=== PATIENT | female | born 1940 | race Caucasian/White ===

== ENCOUNTER 2021-02-04 21:01 | Inpatient (IN) | payer OTHER ==
[~2021-02-04] VITALS: Ht 147.3 cm; Wt 43.6 kg
[2021-02-04 21:09] VITALS: BP 155/64
[2021-02-04 21:50] LABS: URINE BILIRUBIN NEGATIVE (Negative); URINE BLOOD NEGATIVE (Negative); URINE CLARITY CLEAR; URINE COLOR YELLOW; URINE GLUCOSE-RANDOM* NEGATIVE (Negative); URINE KETONES NEGATIVE (Negative); URINE NITRITE-REFLEX NEGATIVE (Negative); URINE PROTEIN (DIPSTICK) NEGATIVE (Negative); URINE SPECIFIC GRAVITY 1.015 (1.005-1.035); URINE UROBILINOGEN 0.2 E.U./dl (0.2-1.0)
[2021-02-04 21:51] LABS: URINE LEUKOCYTES-REFLEX 1+ (Negative)
[2021-02-04 21:53] LABS: ABSOLUTE NEUTROPHILS 4.5 thou/uL (1.4-8.2); EOSINOPHILS 0.6 % (0.0-3.0); HEMOGLOBIN 11.3 gm/dL (12.0-15.0); LYMPHOCYTES 21.1 % (24.0-44.0); MCH 31.3 pg (26.0-34.0); MCHC 34.2 g/dL (28.0-37.0); MCV 91.4 fL (80.0-100.0); MONOCYTES 9.1 % (1.0-8.0); PLATELET COUNT 237 thou/uL (150-400); POLYS 68.2 % (36.0-66.0); RBC 3.61 mil/uL (4.20-5.00); RDW 14.3 % (10.5-14.5); WBC 6.7 thou/uL (4.0-11.0)
[2021-02-04 22:00] LABS: BACTERIA-REFLEX 1-9 Few /HPF (None Seen); CRYSTALS None Seen /LPF (None Seen); HYALINE CASTS 0-3 Few /LPF (None Seen); MUCUS 0-3 Light strn/LPF (None Seen); SQUAMOUS 0-3 Few /LPF (0-3); URINE RBC 0-2 Rare /HPF (0-2); URINE WBC-REFLEX 6-15 Few /HPF (0-5)
[2021-02-04 22:04] LABS: ANION GAP 11 mmol/L (7-16); BUN 12 mg/dL (7-18); CALCIUM 8.6 mg/dL (8.5-10.1); CHLORIDE 94 mmol/L (98-107); CO2 23 mmol/L (21-32); GLUCOSE 95 mg/dL (74-106); POTASSIUM 4.3 mmol/L (3.5-5.1); SODIUM 128 mmol/L (136-145)
[2021-02-04 22:14] LABS: ALBUMIN 3.7 g/dL (3.4-5.0); SGOT 21 U/L (15-37); SGPT 23 U/L (30-65); TOTAL BILIRUBIN 0.4 mg/dL (0.2-1.0); TOTAL PROTEIN 7.1 g/dL (6.4-8.2); TROPONIN-I <0.06 ng/mL (<0.06)
[2021-02-04] MEDS ORDERED: LEVO-T75 MCG PO (23:28)
[2021-02-04 23:41] VITALS: BP 137/65
--- NOTE | 2021-02-05 | NUR ---
assumed care of pt from ed , upon arrival to unit pt alert and oriented x 4 denies nausea at this time. orange juice requested. data base and asssessment completed, no concerns voiced regarding care. but patinet want to talk with social sciences research scientist or registration before signing admission forms. forms left at bedside. pt agreeable with current poc.
[2021-02-05 00:27] VITALS: BP 137/65
[2021-02-05 00:29] VITALS: BP 143/78
[2021-02-05 05:16] LABS: CALCIUM 8.6 mg/dL (8.5-10.1); CREATININE 0.9 mg/dL (0.6-1.0); POTASSIUM 4.3 mmol/L (3.5-5.1)
--- NOTE | 2021-02-05 07:05 | EKG ---
[address] [place] [place] [address] ELECTROCARDIOGRAM REPORT Name: RICHARD KING Room #: 455-P ADM IN M.R.#: [id number] Admission: 02/04/21 Attend Phys: Edita Rodriguez Discharge: Date of : 44 Report #: [id number] [facility] ED Test Date: 2021-02-04 Test Time: 21:18:06 Pat Name: RICHARD KING Department: Room: [facility] Gender: F Market Director: flako : 1940 Requested By: Heriberto Guerra Order Number: [id number] MD: Yonas Pemberton Measurements Intervals [place] Rate: 69 P: 74 [place]: 59 QRS: 42 QRSD: 96 T: 59 QT: 377 QTc: 404 Interpretive Statements Sinus rhythm Short [place] interval Low voltage, extremity leads Baseline wander in lead(s) V1,V2,V6 No previous ECG available for comparison Electronically Signed On 02-05-2021 7:05:16 CDT by Yonas Pemberton [email or web address] <ELECTRONICALLY SIGNED> By: Yonas Pemberton MD, [facility] 02/05/21704 2118 17 Yonas Pemberton MD, FACC /EPI
[2021-02-05 07:43] VITALS: BP 139/75
--- NOTE | 2021-02-05 14:18 | NUR ---
PT ADMITTED RELATED TO WEAKNESS, UTI, HYPONATREMIA, CONSTIPATION. CM REVIEWED CHART AND SPOKE WITH CARE TEAM. CM MET WITH PT AT BEDSIDE THIS DAY. PT APPEARED TO BE A&0 X 3-4. CM ROLE INTRODUCED. PT INDICATED SHE LIVES OVER AT [facility]. SHE RESIDES WITH A NUMBER OF UNRELATED ADULT WOMEN. SHE RESIDES IN A BASEMENT APARTMENT OR THE HOME 1 STEP TO ENTER AND 14 STEPS TO WHERE SHE STAYS. 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 PT HAD BEEN ON SERVICE WITH [facility] AND SHE IS RECEPTIVE TO RESUMING SERVICES WITH THEM UPON DC. CARE TEAM INDICATED SHE MAY BE MEDIALLY STABLE TO DC HOME WITH HH TOMORROW. CM FOLLOWING REGARDING DC PLANNING. SPECIALIZED P: F:
[2021-02-05 18:41] VITALS: BP 141/71
--- NOTE | 2021-02-05 19:40 | NUR ---
ASSUMED CARE OF PATIENT AT SHIFT CHANGE. ASSESSMENT CHARTED. MEDICATIONS ADMINISTERED PER EMAR. VSS. PATIENT IS A&OX4 AND ABLE TO MAKE NEEDS KNOWN. PATIENT IS SBA TO BATHROOM W NO ISSUES/STEADY GAIT. FREQUENT VOIDING STILL BUT NOT OFTEN LAST NIGHT. ABX DID INFUSE W NO ISSUES. BLOOD CULTURES DRAWN THIS DAY BUT NO NEW ABX ORDERED THIS SHIFT. PATIENT VISITED W SPIRITUAL CARE AND STATES FEELING SO MUCH BETTER. PATIENT SHOWERED W SET UP ASSISTANCE THIS DAY W NO ISSUES. NO NEW OR REMARKABLE EVENTS NOTED. ENDORSED TO NOC RN
[2021-02-05 20:09] VITALS: BP 122/55
--- NOTE | 2021-02-06 03:35 | NUR ---
ASSESSMENT COMPLETED. PT ALERT AND ORIENTED, WITH FORGETFULNESS. PT STATES SHE FEELS ALOT BETTER. GETS UP STEADILY TO THE BSC. AFEBRILE. DENIES PAIN.CALLS WITH NEEDS.
[2021-02-06 07:34] VITALS: BP 134/61
--- NOTE | 2021-02-06 11:39 | NUR ---
Assumed pt care at 7am.Pt in bed resting without c/o.Assessment completed.vss. Pt wanted to dc home today and follow with health care instructions in order to stay home and healthy.Dr Wells here,dc order noted.Pt will dc home later today.
[2021-02-06] MEDS ORDERED: MIRALAX17 GM PO (13:25)
[2021-02-06] MEDS ORDERED: CEFUROXIME250 MG PO (13:25)
[2021-02-06] MEDS ORDERED: ACETAMINOPHEN325 M1 PO (13:25)
[2021-02-06 14:24] VITALS: BP 134/61
[2021-02-08 11:51] VITALS: BP 134/61
== END 2021-02-06 15:55 | disposition home health service (06) | DRG 689 ==
LOC: ER 21:01 → 4W 23:25 → EROBS 23:25 → 4W 02-05 00:12
PROVIDERS: Nurse Practitioner; Nurse Practitioner Family; ADMIT Hospitalist; ATTEND Hospitalist
DX: N39.0 Urinary tract infection, site not specified (principal); E43 Unspecified severe protein-calorie malnutrition; E87.1 Hypo-osmolality and hyponatremia; E03.9 Hypothyroidism, unspecified; K59.00 Constipation, unspecified; Z68.20 Body mass index [BMI] 20.0-20.9, adult
CPT/HCPCS: 10040

== ENCOUNTER 2021-02-09 05:25 | Inpatient (IN) | payer OTHER ==
[~2021-02-09] VITALS: Ht 147.3 cm; Wt 43.8 kg
--- NOTE | ~2021-02-09 | EMS ---
[facility] [address] [place] [address] EMS Patient Care Report Name: RICHARD KING Room #: 459-P DIS IN M.R.#: [id number] Admission: 02/09/21 Attend Phys: César Wells MD Discharge: 02/11/21 Date of : 42 Report #: [id number] THIS REPORT FOR: //name// Report Transmitted: 02/13/2021 06:41 EMS Care Summary [place], [place] Incident [id number] @ 02/09/2021 04:55 Incident Location [id number] [place] [address] Patient RICHARD KING Female, 80 Years 1940 Patient Address [address] [place] [address] Patient Allergies No known allergies, Chief Complaint I feel weak and fell Disposition Transported No Lights/Home Dispatch Reason Falls Transported To [facility] Narrative Called for a fall. Upon arrival, pt was lying on the ground found by bystander/friends. It was the reported the pt was out walking around and got weak and fell to the ground. Pt does not appear to be injured and has no complaints. Pt assisted to the EMS cot and loaded into the ambulance w/o incident. Vitals obtained. Pt c/o just feeling a little weak. IV and D-stick obtained. Vitals repeated. En route; no changes. RR to ER. Arrived: pt taken to ER and moved to their bed w/o incident. Pt care & report to ER staff. Initial Vitals [facility] [address] [place] [address] EMS Patient Care Report Name: RICHARD KING Room #: 459-P DIS IN M.R.#: [id number] Admission: 02/09/21 Attend Phys: César Wells MD Discharge: 02/11/21 Date of : 42 Report #: [id number] @05:12P: 74,R: 16,BP: 180/80,Pain: 0/10,GCS: 15,Glucose: 124,CO: 1,SpO2: 100,Revised Trauma: 12, @05:05P: 79,R: 16,BP: 169/84,Pain: 0/10,GCS: 15,SpO2: 100,Revised Trauma: 12, Assessments @05:00MENTAL:Person Oriented,Time Oriented,Event Oriented,Place Oriented,SKIN:HEENT:LUNG SOUNDS:ABDOMEN:PELVIS//GI:No Abnormalities,EXTREMITIES:Left Arm: No Abnormalities,Right Arm: No Abnormalities,Left Leg: No Abnormalities,Right Leg: No Abnormalities,PULSE:Radial: 2+ Normal,NEURO:No Abnormalities, Impression Generalized Weakness Procedures @05:00ALS AssessmentResponse: UnchangedSucceeded@05:09Saline Lock 8cc (18 ga) Site: Forearm-RightResponse: UnchangedSucceeded@05:07Saline Lock cc (18 ga) Site: Antecubital-LeftResponse: UnchangedFailed@05:02StretcherResponse: Unchanged Timeline 04:51,Call Received 04:51,Dispatch Notified 04:55,Dispatched 04:55,En Route 04:59,On Scene 05:00,At Patient 05:00,ALS Assessment,Response: UnchangedSucceeded, 05:02,Stretcher,Response: Unchanged 05:05,BP: 169/84 M,PULSE: 79,RR: 16 R,SPO2: 100 Ox,ETCO2: ,BG: ,PAIN: 0,GCS: 15, 05:07,Saline Lock cc 18 ga Site: Antecubital-Left,Response: UnchangedFailed, 05:09,Saline Lock 8cc 18 ga Site: Forearm-Right,Response: UnchangedSucceeded, 05:11,Depart Scene 05:12,BP: 180/80 M,PULSE: 74,RR: 16 R,SPO2: 100 Ox,ETCO2: ,B,PAIN: 0,GCS: 15, 05:21,At Destination 05:37,Call Closed Disclaimer v1.1 Copyright 2020 [employer] This EMS Care Summary contains data elements from the applicable legal record (which may be displayed differently). It is designed to provide pertinent information for the following purposes: continuity of care, clinical quality, and state data reporting. The complete legal record is available to ED staff and administrators of the receiving hospital in [employer]'s Patient [place] [id number] EMS Patient Care Report Name: RICHARD KING Room #: 459-P DIS IN M.R.#: [id number] Admission: 02/09/21 Attend Phys: César Wells MD Discharge: 02/11/21 Date of : 42 Report #: [id number] is provided "as is."
[~2021-02-09 05:25] MED LIST: ACETAMINOPHEN325 M1 PO; CEFUROXIME250 MG PO; LEVO-T75 MCG PO; MIRALAX17 GM PO
[2021-02-09 05:37] VITALS: BP 159/64
[2021-02-09 05:42] LABS: ABSOLUTE NEUTROPHILS 3.2 thou/uL (1.4-8.2); EOSINOPHILS 0.8 % (0.0-3.0); HEMATOCRIT 30.9 % (37.0-47.0); HEMOGLOBIN 10.6 gm/dL (12.0-15.0); LYMPHOCYTES 19.4 % (24.0-44.0); MCHC 34.5 g/dL (28.0-37.0); MONOCYTES 9.2 % (1.0-8.0); PLATELET COUNT 227 thou/uL (150-400); POLYS 69.6 % (36.0-66.0); RBC 3.43 mil/uL (4.20-5.00); RDW 13.8 % (10.5-14.5); WBC 4.6 thou/uL (4.0-11.0)
--- NOTE | 2021-02-09 05:52 | EKG ---
[address] [address] ELECTROCARDIOGRAM REPORT Name: STARLARICHARD CANADA Room #: [facility]..#: [id number] Admission: Attend Phys: Discharge: Date of : 44 Report #: [id number] [facility] ED Test Date: 2021-02-09 Test Time: 05:44:57 Pat Name: RICHARD KING Department: Room: Gender: F Rn Cardiovascular: flako : 1940 Requested By: Ct Conway Order Number: [id number] MD: Yonas Pemberton Measurements Intervals [place] Rate: 70 P: 73 [place]: 165 QRS: 34 QRSD: 101 T: 53 QT: 430 QTc: 464 Interpretive Statements Sinus rhythm Probable left atrial enlargement Minimal ST elevation, inferior leads Compared to ECG 02/04/2021 21:18:06 ST (T wave) deviation now present Short [place] interval no longer present Electronically Signed On 02-09-2021 5:52:36 CDT by Yonas Pemberton [email or web address] <ELECTRONICALLY SIGNED> By: Yonas Pemberton MD, [facility] 02/09/21 0552 D: 04/543 Yonas Pemberton MD, FACC /EPI
[2021-02-09 05:54] LABS: ANION GAP 9 mmol/L (7-16); BUN 6 mg/dL (7-18); CALCIUM 8.5 mg/dL (8.5-10.1); CHLORIDE 90 mmol/L (98-107); CO2 24 mmol/L (21-32); CREATININE 0.8 mg/dL (0.6-1.0); GLUCOSE 112 mg/dL (74-106); POTASSIUM 3.8 mmol/L (3.5-5.1); SODIUM 123 mmol/L (136-145)
[2021-02-09 06:01] LABS: ALBUMIN 3.6 g/dL (3.4-5.0); SGOT 20 U/L (15-37); SGPT 20 U/L (14-59); TOTAL BILIRUBIN 0.6 mg/dL (0.2-1.0); TROPONIN-I <0.06 ng/mL (<0.06)
[2021-02-09 06:43] LABS: URINE BILIRUBIN NEGATIVE (Negative); URINE BLOOD NEGATIVE (Negative); URINE CLARITY CLEAR; URINE COLOR YELLOW; URINE GLUCOSE-RANDOM* NEGATIVE (Negative); URINE KETONES 1+ (Negative); URINE LEUKOCYTES-REFLEX NEGATIVE (Negative); URINE NITRITE-REFLEX NEGATIVE (Negative); URINE PROTEIN (DIPSTICK) NEGATIVE (Negative); URINE UROBILINOGEN 0.2 E.U./dl (0.2-1.0)
[2021-02-09 08:06] VITALS: BP 141/62
[2021-02-09 08:16] VITALS: BP 141/62
[2021-02-09 08:34] VITALS: BP 136/59
[2021-02-09 15:09] VITALS: BP 108/57
--- NOTE | 2021-02-09 16:09 | NUR ---
PT ADMITTED RELATED TO CONFUSION AND HYPONATREMIA. PT HAD DISCHARGE HOME WITH RESUMPTION OF [facility] HH ON TUESDAY 02/06. CM REVIEWED CHART AND SPOKE WITH CARE TEAM. CM MET WITH PT AT BEDSIDE THIS DAY. PT APPEARED TO BE A&0 X 3-4. CM ROLE INTRODUCED. PT INDICATED SHE LIVES OVER AT [facility]. SHE RESIDES WITH A NUMBER OF UNRELATED ADULT WOMEN. SHE RESIDES IN A BASEMENT APARTMENT OR THE HOME 1 STEP TO ENTER AND 14 STEPS TO WHERE SHE STAYS. 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 [facility]. PT INDICATED THAT WE CAN SPEAK TO HER BROTHER ALMA OR SISTER IN LAW ELI . CM CALLED AND SPOKE WITH ALMA HE INDICATED THAT FAR HE KNOWS HE ISN'T PT DPOA BUT HE WOULD BE RECPTIVE TO BEING DPOA IF PT CAN ELECT. PT INDICATED SHE IS RECEPTIVE TO SKILLED IF NEEDED UPON DC. SHE INDICATED SHE IS FAMILIAR WITH [facility] AND MIGHT BE INTERESTED IN GOING THERE ONCE MEDICALLY STABLE. CM FOLLOWING REGARDING DC PLANNING. CM FOLLOWING REGARDING DC PLANNING. SPECIALIZED P: F:
--- NOTE | 2021-02-09 17:14 | NUR ---
Received the pt from the ED, alert and oriented x 3 to 4, forgetful at times. Stated her point of contact and dpoa is her brother who lives in [place]. Has 2 friends that 1 lives in the same house pt does and one who helps her out. Brother had indicated he is willing and to be the dpoa and stated he may have papers at home but not sure what they are. Friend Annita came to visit, home meds, soiled clothes, pull ups (diapers) and keys were sent home with Annita. Friend is to come back later on in the evening to bring more clothes the pt requested. Here are the numbers of the family members. Rodger Celestin (brother) [phone], Pippa Celestin (sister in law) [phone]
[2021-02-09 20:36] VITALS: BP 121/56
--- NOTE | 2021-02-10 03:47 | NUR ---
PATIENT AOX4 MAKES NEEDS KNOWN. PATIENT ENCOURAGED FLUIDS. PATIENT NEEDS MINIMUM ASSISTANCE WITH ADL, BED MOBILITY, TRANSFER AND TOILETING. FALL PRECAUTION IN PLACE. PATIENT IN BED ASLEEP AT THIS TIME BREATHING REGULAR AND UNLABOURED.
[2021-02-10 05:14] LABS: CALCIUM 8.4 mg/dL (8.5-10.1); CREATININE 1.1 mg/dL (0.6-1.0); MAGNESIUM 2.1 mg/dL (1.8-2.4); POTASSIUM 4.1 mmol/L (3.5-5.1)
[2021-02-10 09:00] VITALS: BP 121/78
--- NOTE | 2021-02-10 09:39 | NUR ---
Pt has very limited oral intake at home, recommend check folate, B12, vitamin D levels and replete if needed
--- NOTE | 2021-02-10 11:38 | NUR ---
BPCI letter provided, patient from home
--- NOTE | 2021-02-10 14:00 | NUR ---
CARE TEAM INDICATING THAT PT NEEDS POST ACUTE CARE STAY. PT IS AGREEABLE. PT IS [facility] PT. CM MET WITH PT AND PROVIDED [facility] SNF LIST FOR REVIEW. PT AGAIN INDICATED SHE WANTED TO GO TO [facility]. CM CHECKED WITH [facility] REPS AND THEY INDICATED THAT PT COULD DC THERE. DAWOOD ASKED PF IF SHE INTENDED TO RETURN HOME ONCE MEDCIALLY STABLE AND RESUME HH SERVICES WITH [facility] OR IF PT WAS INTERESTED IN LTC. SHE INDICATED SHE PLANS TO RETURN HOME ONCE MEDICALLY STABLE. CM FAXED REFERRAL TO [facility] FOR REVIEW FOR POSSIBLE ADMISSION.
--- NOTE | 2021-02-10 19:22 | NUR ---
Assumed pt care this am , vs stable alert and oriented x4. Sodium are with in normal limits, diet and medication are tolerated well. Is continent and uses the bedside commode, spent most of her day on the recliner. POC followed with no signs or verbalziations of distress noted, awaiting authorization for placement to a facility. Endorsed to the night nurse, COVID test done.
[2021-02-10 19:48] VITALS: BP 120/67
--- NOTE | 2021-02-11 05:36 | NUR ---
Assumed pt care at 1900. A/OX4, VSS. Denies pain on assessment. SR on telemetry. Up with SBA to BSC. IVF infusing via RFA w/o any problems. Fall precauitons in place. Resting w/o any distress,will continue to monitor pt.
[2021-02-11 07:27] VITALS: BP 125/50
[2021-02-11 11:06] LABS: HEMATOCRIT 34.6 % (37.0-47.0); HEMOGLOBIN 11.2 gm/dL (12.0-15.0); MCH 30.3 pg (26.0-34.0); MCHC 32.5 g/dL (28.0-37.0); MCV 93.4 fL (80.0-100.0); RBC 3.7 mil/uL (4.20-5.00); RDW 14.6 % (10.5-14.5); WBC 5.3 thou/uL (4.0-11.0)
[2021-02-11 11:11] LABS: CALCIUM 8.9 mg/dL (8.5-10.1); CREATININE 0.8 mg/dL (0.6-1.0)
--- NOTE | 2021-02-11 11:48 | NUR ---
CM SPOKE WITH ADMISSIONS AT [facility] THIS AM. THEY INDICATED THAT THEY ARE ABLE TO ACCEPT PT IF IT IS DETERMINED THAT SHE IS CAPABLE TO MAKE HER OWN MEDICAL DECISIONS. DAWOOD SPOKE WITH PSYC WHO INDICATED SHE IS AND THAT DPOA CAN BE COMPLETED. CM NOTIFIED MIMI TO VISIT WITH PT TO COMPLETE DOCUMENT. CARE TEAM INDICATED PT IS MEDICALLY STABLE TO DC TO [facility] THIS DAY AWAITING ORDERS. CLINICAL UPDATE FAXED.
[2021-02-11 12:00] VITALS: BP 130/62
--- NOTE | 2021-02-11 12:56 | NUR ---
Assumed pt care at 7am.Assessment completed,vss.Assisted to bsc to void. Pt in bed for all meals and good appetite noted.Meds given as ordered and well tolerated.Miralax given with apple juice this am and pt has moderate formed bm two hours later.Dr Gregorio here,dc order noted.Pt will dc to [facility] rehab later today.Pt up chair eating lunch.Fall bundle in place. Pt encouraged to call for assistance as needed.Will continue to monitor.
== END 2021-02-11 16:25 | DRG 640 ==
LOC: ER 05:25 → EROBS 07:42 → 4W 07:42
PROVIDERS: Emergency Medicine; Internal Medicine; ADMIT Internal Medicine; ATTEND Internal Medicine
DX: E87.1 Hypo-osmolality and hyponatremia (principal); G93.41 Metabolic encephalopathy; N39.0 Urinary tract infection, site not specified; Z20.822 Contact with and (suspected) exposure to COVID-19; E03.9 Hypothyroidism, unspecified; R53.81 Other malaise; K59.00 Constipation, unspecified; Z79.899 Other long term (current) drug therapy
CPT/HCPCS: 10045

== ENCOUNTER 2021-10-21 15:41 | Inpatient (IN) | payer OTHER ==
[~2021-10-21] VITALS: Ht 147.3 cm; Wt 42.2 kg
--- NOTE | ~2021-10-21 | EMS ---
[facility] [address] [place] [address] EMS Patient Care Report Name: RICHARD KING Room #: 350-P ADM IN M.R.#: [id number] Admission: 10/21/21 Attend Phys: Rohith Aranda MD Discharge: Date of : 42 Report #: [id number] THIS REPORT FOR: //name// Report Transmitted: 10/27/2021 08:32 EMS Care Summary [place], [place]/[facility] Incident [id number] @ 10/21/2021 15:01 Incident Location [id number] [place] [address] Patient RICHARD KING Female, 81 Years 1940 Patient Address [id number] [place] [address] Patient History None Reported, Patient Allergies No known allergies, Patient Medications Magnesium Salicylate, Chief Complaint nausea vomiting Disposition Transported No Lights/[place] Dispatch Reason Sick Person Transported To [facility] Narrative 81 y/o female with nausea vomiting and possible AMS Upon arrival the pt was in her bed room sitting up on the edge of her bed. P 42 crew is on scene with the pt trying to take off some layers of shirts to get [facility] [address] [place] [address] EMS Patient Care Report Name: RICHARD KING Room #: 350-P ADM IN Heather#: [id number] Admission: 10/21/21 Attend Phys: Rohith Aranda MD Discharge: Date of : 42 Report #: [id number] VS. The pt has on 8 layers of clothing. The pt vomited once in the trash can about a table spoon of vomit that is dark color in nature. The pt is conscious A&O x 4 with a GCS of 15. She has a patent airway, breathing is normal, and has a strong reg radial pulse. Family state the last time she had this go on she was low on sodium and has Hx of hyponatremia. The pt was carried onto the cot, placed on the cot in a position of comfort, covered with blankets, secured to the cot and loaded into the ambulance. VS were obtained, ECG is SR. a 20 was placed n LAC with NS and 200 ml given, D-136. The pt family want her transported to [place]. The pt was transported to [place] with no changes or incidents with the pt. the pt has tenting in her extremities. The pt admits to not eating and drinking fluids and food daily as she should be. EMS returned to service. Initial Vitals @15:27P: 70,BP: 175/76,SpO2: 95, @15:25P: 83,BP: 172/79,SpO2: 96, @15:22P: 66,CO: 0,SpO2: 89, @15:26P: 83,SpO2: 96, @15:23P: 86,R: 14,BP: 162/69,Pain: 0/10,GCS: 15,Glucose: 136,SpO2: 96,Revised Trauma: 12,IA Suspected: false Assessments @15:48MENTAL:Person Oriented,Time Oriented,Event Oriented,Place Oriented,SKIN:HEENT:Head/Face: No Abnormalities,Neck/Airway: No Abnormalities,LUNG SOUNDS:General: No Abnormalities,ABDOMEN:General: No Abnormalities,PELVIS//GI:No Abnormalities,EXTREMITIES:Capillary Refill: Right Upper: < 2 Sec,Capillary Refill: Left Upper: < 2 Sec,Left Arm: No Abnormalities,Right Arm: No Abnormalities,Left Leg: No Abnormalities,Right Leg: No Abnormalities,PULSE:Radial: 2+ Normal,NEURO:No Abnormalities, Impression Nausea Procedures @15:20 ALS Assessment Response: UnchangedSucceeded @15:46 3-Lead ECG Response: UnchangedSucceeded @15:24 IV Therapy - Normal Saline (.9% NaCl) 200cc (20 ga) Site: Antecubital-Left Response: UnchangedSucceeded @15:47 Zofran - 4 Milligrams (mg) - Oral Response: Improved Timeline 14:59,Call Received 14:59,Dispatch Notified 15:01,Dispatched 15:03,En Route [address] [address] EMS Patient Care Report Name: RICHARD KING Room #: 350-P ADM IN M.R.#: [id number] Admission: 10/21/21 Attend Phys: Rohith Aranda MD Discharge: Date of : 44 Report #: [id number] 15:12,On Scene 15:13,At Patient 15:20,ALS Assessment,Response: UnchangedSucceeded, 15:22,BP: / M,PULSE: 66,RR: R,SPO2: 89 Ox,ETCO2: ,BG: ,PAIN: ,GCS: , 15:23,BP: 162/69 M,PULSE: 86,RR: 14 R,SPO2: 96 Ox,ETCO2: ,B,PAIN: 0,GCS: 15, 15:24,IV Therapy - Normal Saline (.9% NaCl) 200cc 20 ga Site: Antecubital-Left,Response: UnchangedSucceeded, 15:25,BP: 172/79 M,PULSE: 83,RR: R,SPO2: 96 Ox,ETCO2: ,BG: ,PAIN: ,GCS: , 15:26,BP: / M,PULSE: 83,RR: R,SPO2: 96 Ox,ETCO2: ,BG: ,PAIN: ,GCS: , 15:27,BP: 175/76 M,PULSE: 70,RR: R,SPO2: 95 Ox,ETCO2: ,BG: ,PAIN: ,GCS: , 15:28,Depart Scene 15:36,At Destination 15:46,3-Lead ECG,Response: UnchangedSucceeded, 15:47,Zofran - 4 Milligrams (mg) - Oral,Response: Improved 15:56,Call Closed Disclaimer v1.1 Copyright 2021 [employer] This EMS Care Summary contains data elements from the applicable legal record (which may be displayed differently). It is designed to provide pertinent information for the following purposes: continuity of care, clinical quality, and state data reporting. The complete legal record is available to ED staff and administrators of the receiving hospital in [employer]'s Patient Tracker. All data is provided "as is."
[2021-10-21 15:57] LABS: ABSOLUTE NEUTROPHILS 4.1 thou/uL (1.4-8.2); BASOPHILS 0.1 % (0.0-2.0); HEMATOCRIT 30.7 % (37.0-47.0); HEMOGLOBIN 10.7 gm/dL (12.0-15.0); LYMPHOCYTES 7.2 % (24.0-44.0); MCH 30.9 pg (26.0-34.0); MCV 88.3 fL (80.0-100.0); MONOCYTES 7.5 % (1.0-8.0); PLATELET COUNT 192 thou/uL (150-400); POLYS 85.2 % (36.0-66.0); RBC 3.48 mil/uL (4.20-5.00); RDW 14.6 % (10.5-14.5); WBC 4.8 thou/uL (4.0-11.0)
[2021-10-21 16:16] LABS: ALBUMIN 3.9 g/dL (3.4-5.0); CALCIUM 8.6 mg/dL (8.5-10.1); CREATININE 1.2 mg/dL (0.6-1.0); MAGNESIUM 2.1 mg/dL (1.8-2.4); TOTAL BILIRUBIN 0.6 mg/dL (0.2-1.0); TOTAL PROTEIN 7.1 g/dL (6.4-8.2)
--- NOTE | 2021-10-21 16:58 | NUR ---
Laureano, brother: [phone]
[2021-10-22] VITALS (8 sets, daily range): BP systolic 97–123; BP diastolic 44–70
--- NOTE | 2021-10-22 01:34 | NUR ---
PT ADMITTED TO ROOM 350, ARRIVED TO UNIT AT APPROXIMATELY 0040 ACCOMPANIED BY ED STAFF. PT IS A&OX4 AND ABLE TO COMMUNICATE WANTS AND NEEDS TO STAFF. ABLE TO STAND/PIVOT TRANSFER WITH MODERATE ASSIST X1, PT APPEARS WEAK. ADMISSION ASSESSMENTS DOCUMENTED. QUINN IN PLACE DRAINING CLEAR YELLOW URINE. VSS UPON ADMISSION TO UNIT. WILL CONTINUE TO OBSERVE FOR CHANGES
[2021-10-22 06:27] LABS: CALCIUM 8.4 mg/dL (8.5-10.1); POTASSIUM 3.8 mmol/L (3.5-5.1)
--- NOTE | 2021-10-22 07:47 | EKG ---
[address] [address] ELECTROCARDIOGRAM REPORT Name: RICHARD KING Room #: 350-P ADM IN M.R.#: [id number] Admission: 10/21/21 Attend Phys: Kye Mattson MD Discharge: Date of : 44 Report #: [id number] [facility] ED Test Date: 2021-10-21 Test Time: 16:07:39 Pat Name: RICHARD KING Department: Room: 350 Gender: F Zoning Engineer: jaswinder : 1940 Requested By: Phyllis Canas Order Number: [id number] MD: Yonas Pemberton Measurements Intervals [place] Rate: 71 P: 82 DE: 177 QRS: 64 QRSD: 232 T: 65 QT: 417 QTc: 454 Interpretive Statements Sinus rhythm Probable left ventricular hypertrophy Compared to ECG 02/09/2021 05:44:57 ST (T wave) deviation no longer present Electronically Signed On 10-22-2021 7:46:42 WEIGHT LOSS COUNSELOR by Yonas Pemberton [email or web address] <ELECTRONICALLY SIGNED> By: Yonas Pemberton MD, [facility] 10/22/21 0746 06 Yonas Pemberton MD, FACC /EPI
--- NOTE | 2021-10-22 09:27 | NUR ---
Nutrition: REC check vitamin D, folic acid and B12 levels.
[2021-10-22 14:05] LABS: URINE BILIRUBIN NEGATIVE (Negative); URINE BLOOD 1+ (Negative); URINE CLARITY CLEAR; URINE COLOR YELLOW; URINE GLUCOSE-RANDOM* NEGATIVE (Negative); URINE KETONES TRACE (Negative); URINE LEUKOCYTES-REFLEX NEGATIVE (Negative); URINE NITRITE-REFLEX NEGATIVE (Negative); URINE PROTEIN (DIPSTICK) NEGATIVE (Negative); URINE SPECIFIC GRAVITY <= 1.005 (1.005-1.035); URINE UROBILINOGEN 0.2 E.U./dl (0.2-1.0)
[2021-10-22 14:21] LABS: BACTERIA-REFLEX None Seen /HPF (None Seen); CASTS None Seen /LPF (None Seen); CRYSTALS None Seen /LPF (None Seen); SQUAMOUS None Seen /LPF (0-3); URINE RBC 1-2 Rare /HPF (NONE SEEN); URINE WBC-REFLEX 0-5 Rare /HPF (0-5)
--- NOTE | 2021-10-22 16:35 | NUR ---
INITIAL ASSESSMENT: Received consult. WM reviewed chart and spoke with nursing and attending physician. Pt was admitted from home due to AMS. Pt had positive COVID test in the ER. Pt placed in Enhanced Isolation. Per chart, pt has not received a COVID vaccination. Pt is afebrile and on room air. PT/OT ordered. Recommendation made for pt to have HH services. WM placed call to pt's room. No answer. WM left voice message on listed contact number: [phone]. Per chart, pt is alert/orientated x 4. Pt lives with roommates in a home affiliatied with the [facility]. Prior to admission, pt was independent with ADLs. No use of DME. [employer] is listed as pt's primary care provider. HH referral to be sent if ordered and pt is agreeable. Possible weekend discharge. WM is following to assist as needed with discharge planning.
--- NOTE | 2021-10-22 18:17 | NUR ---
RN ASSUMED PT'S CARE AT 0700AM, PT IS A&OX4, PT IS ON ROOM AIR , PT'S VS ARE STABLE AT DAY SHIFT, PT IS CONTINUING IV ABX, IV FLUID AND TREAT COVID MEDICATIONS, PT'S HYPONATREMIA, N/V AND WEAKNESS HAVE IMPROVED, PT GETS UP TO CHAIR WITH ASSIST, PT DENIES PAIN AND SOB AT DAY SHIFT.
[2021-10-23 03:19] LABS: ABSOLUTE NEUTROPHILS 5.2 thou/uL (1.4-8.2); BASOPHILS 0.2 % (0.0-2.0); HEMATOCRIT 28.1 % (37.0-47.0); HEMOGLOBIN 9.7 gm/dL (12.0-15.0); LYMPHOCYTES 8.6 % (24.0-44.0); MCH 31.4 pg (26.0-34.0); MCHC 34.7 g/dL (28.0-37.0); MCV 90.5 fL (80.0-100.0); MONOCYTES 6.8 % (1.0-8.0); PLATELET COUNT 151 thou/uL (150-400); POLYS 84.4 % (36.0-66.0); RBC 3.11 mil/uL (4.20-5.00); RDW 15.4 % (10.5-14.5); WBC 6.2 thou/uL (4.0-11.0)
[2021-10-23 03:29] LABS: D-DIMER 0.67 ug/mLFEU (0.19-0.50)
[2021-10-23 03:31] LABS: ALBUMIN 2.6 g/dL (3.4-5.0); CALCIUM 7.8 mg/dL (8.5-10.1); CREATININE 1.1 mg/dL (0.6-1.0); TOTAL BILIRUBIN 0.1 mg/dL (0.2-1.0); TOTAL PROTEIN 5.4 g/dL (6.4-8.2)
[2021-10-23 04:32] VITALS: BP 97/47
--- NOTE | 2021-10-23 06:07 | NUR ---
PT MAKING PROGRESS TOWARDS GOALS. ON ROOM AIR THROUGHOUT THE NIGHT. LUNGS DIMINISHED THROUGHOUT. STATES SHE FEELS SHE IS HAVING NO TROUBLE BREATHING THIS MORNING.
[2021-10-23 07:05] VITALS: BP 118/54
[2021-10-23 11:04] VITALS: BP 119/56
[2021-10-23 15:07] VITALS: BP 136/60
--- NOTE | 2021-10-23 19:28 | NUR ---
RN ASSUMED PT'S CARE AT 0700-1900PM, PT IS A&OX4, PT IS ON ROOM AIR, PT'S VS ARE STABLE, PT DENIES PAIN AND SOB AT DAY SHIFT, PT'S HYPONATREMIA HAS IMPROVED, PT IS CONTINUING NS@ 50ML/HR.
[2021-10-23 20:05] VITALS: BP 141/69
--- NOTE | 2021-10-23 21:32 | HC ---
[facility] [place] [address] CONSULTATION Name: RICHARD KING Room #: 350-P ADM IN M.R.#: [id number] Admission: 10/21/21 Attend Phys: Rohith Aranda MD Discharge: Date of : 44 Report #: [id number] THIS REPORT FOR: cc: [facility] Omero Orr MD ~ DATE OF SERVICE: 10/22/2021 INFECTIOUS DISEASE CONSULTATION REASON FOR CONSULTATION: I was asked to evaluate concerning COVID-19 infection with gastroenteritis and electrolyte abnormalities. HISTORY OF PRESENT ILLNESS:The patient was a 81-year-old with a previous history of hypothyroidism, presents to the Emergency Room with acute onset of confusional state, nausea and vomiting. The GI complaints have been going on for approximately 48 hours. Denies any abdominal pain or diarrhea. No fever, chills or sweats. Denies any cough or sputum production. No headache or anosmia. She is unvaccinated for COVID-19. She lives with 6 other individuals at the [facility]. On presentation to the Emergency Room, she had a sodium of 117 and was COVID positive. She has remained off oxygen with O2 saturation in the high 90s. She was also found to be significantly hypothyroid and has been placed on replacement. Overall, feels much improved today with her nausea resolved. REVIEW OF SYSTEMS: A 14-point review of system was negative other than what has been described above. PAST MEDICAL HISTORY: Urinary tract infection, hypothyroidism, hyponatremia, bone spur to her foot. FAMILY HISTORY: Cancer, heart disease. SOCIAL HISTORY: Nonsmoker. No significant alcohol intake. No HIV risk factors. ALLERGIES: None known. MEDICATIONS: As noted on her MAR, which were reviewed. PHYSICAL EXAMINATION: GENERAL: She was afebrile and hemodynamically stable. She was alert and cooperative and pleasant, in no acute distress. SKIN: Without rash. HEENT: Eyes without scleral icterus. Mouth without mucositis. She was thin. No palpable adenopathy. [facility] [address] [place] [address] CONSULTATION Name: RICHARD KING Room #: [facility] IN M.R.#: [id number] Admission: 10/21/21 Attend Phys: Rohith Aranda MD Discharge: Date of : 44 Report #: [id number] NECK: Supple. LUNGS: Clear to auscultation. HEART: Regular, without murmur. ABDOMEN: Soft and nontender. There was no hepatosplenomegaly or mass. EXTREMITIES: Without clubbing, cyanosis or edema. PSYCHIATRIC: Mood without anxiety. NEUROLOGIC: Mental status was within normal limits. Strength in the upper and lower extremities was symmetric and within normal limits. BACK: Nontender. LABORATORY DATA: Reviewed. MICROBIOLOGY: Reviewed. IMAGING: Chest and head reviewed. IMPRESSION: A 81-year-old with acute toxic metabolic encephalopathy related to hyponatremia and COVID-19. Nausea and vomiting, I am suspecting is more likely related to COVID-19. She has acute kidney injury, now improved. No evidence of significant pneumonia. RECOMMENDATION: We would recommend remdesivir at this point. Unable to obtain monoclonal antibody or Paxlovid in the city at this point. Followup laboratory studies, and fluid and electrolyte management per attending. <ELECTRONICALLY SIGNED> By: Omero Orr MD 10/23/21 [id number] Omero Orr MD /nt
[2021-10-24 04:25] VITALS: BP 138/79
[2021-10-24 06:16] LABS: ABSOLUTE NEUTROPHILS 4.3 thou/uL (1.4-8.2); BASOPHILS 0.5 % (0.0-2.0); EOSINOPHILS 0.2 % (0.0-3.0); HEMATOCRIT 34.4 % (37.0-47.0); HEMOGLOBIN 11.5 gm/dL (12.0-15.0); LYMPHOCYTES 19.4 % (24.0-44.0); MCH 30.5 pg (26.0-34.0); MCHC 33.3 g/dL (28.0-37.0); MCV 91.4 fL (80.0-100.0); MONOCYTES 5.8 % (1.0-8.0); PLATELET COUNT 169 thou/uL (150-400); POLYS 74.1 % (36.0-66.0); RBC 3.76 mil/uL (4.20-5.00); RDW 15.3 % (10.5-14.5); WBC 5.8 thou/uL (4.0-11.0)
[2021-10-24 06:39] LABS: ANION GAP 9 mmol/L (7-16); BUN 14 mg/dL (7-18); CALCIUM 8.2 mg/dL (8.5-10.1); CHLORIDE 99 mmol/L (98-107); CO2 25 mmol/L (21-32); DIRECT BILIRUBIN < 0.1 mg/dL (<0.1-0.2); GLUCOSE 79 mg/dL (74-106); PHOSPHORUS 2.1 mg/dL (2.5-4.9); POTASSIUM 3.7 mmol/L (3.5-5.1); SGOT 85 U/L (15-37); SGPT 49 U/L (30-65); SODIUM 133 mmol/L (136-145); TOTAL BILIRUBIN 0.2 mg/dL (0.2-1.0); TOTAL PROTEIN 6.1 g/dL (6.4-8.2)
[2021-10-24 07:06] VITALS: BP 150/67
[2021-10-24 14:55] VITALS: BP 132/65
[2021-10-24 19:16] VITALS: BP 139/74
--- NOTE | 2021-10-24 19:27 | NUR ---
RN ASSUMED PT'S CARE AT 0700-1900PM, PT IS A&OX4, PT IS ON ROOM AIR, PT'S LAB RESULTS HAVE IMPROVED, PT IS CONTINUING NS @ 50ML/HR, WE ENCOURAGE PT TO EAT, PT GETS UP TO CHAIR WITH ASSIST. PT DENIES PAIN AT DAY SHIFT.
[2021-10-25 01:19] LABS: URINE BILIRUBIN NEGATIVE (Negative); URINE BLOOD NEGATIVE (Negative); URINE CLARITY CLEAR; URINE COLOR YELLOW; URINE GLUCOSE-RANDOM* NEGATIVE (Negative); URINE KETONES NEGATIVE (Negative); URINE LEUKOCYTES-REFLEX NEGATIVE (Negative); URINE NITRITE-REFLEX NEGATIVE (Negative); URINE PROTEIN (DIPSTICK) NEGATIVE (Negative); URINE UROBILINOGEN 0.2 E.U./dl (0.2-1.0)
[2021-10-25 03:21] VITALS: BP 138/62
[2021-10-25 04:34] LABS: ABSOLUTE NEUTROPHILS 3.3 thou/uL (1.4-8.2); EOSINOPHILS 0.3 % (0.0-3.0); HEMATOCRIT 35.7 % (37.0-47.0); HEMOGLOBIN 11.9 gm/dL (12.0-15.0); LYMPHOCYTES 25.2 % (24.0-44.0); MCH 30.9 pg (26.0-34.0); MCHC 33.4 g/dL (28.0-37.0); MCV 92.6 fL (80.0-100.0); MONOCYTES 6.5 % (1.0-8.0); PLATELET COUNT 167 thou/uL (150-400); RBC 3.86 mil/uL (4.20-5.00); RDW 16.3 % (10.5-14.5); WBC 4.9 thou/uL (4.0-11.0)
[2021-10-25 05:06] LABS: ALBUMIN 2.9 g/dL (3.4-5.0); ANION GAP 10 mmol/L (7-16); BUN 12 mg/dL (7-18); CALCIUM 7.9 mg/dL (8.5-10.1); CHLORIDE 99 mmol/L (98-107); CO2 24 mmol/L (21-32); CREATININE 0.9 mg/dL (0.6-1.0); DIRECT BILIRUBIN < 0.1 mg/dL (<0.1-0.2); GLUCOSE 95 mg/dL (74-106); PHOSPHORUS 2.5 mg/dL (2.5-4.9); POTASSIUM 3.3 mmol/L (3.5-5.1); SGOT 67 U/L (15-37); SGPT 46 U/L (30-65); SODIUM 133 mmol/L (136-145); TOTAL BILIRUBIN 0.2 mg/dL (0.2-1.0); TOTAL PROTEIN 5.8 g/dL (6.4-8.2)
--- NOTE | 2021-10-25 05:50 | NUR ---
PT IS SLOWLY PROGRESSING TOWARD GOALS. PT IS A&OX4 BUT WITH OCCASIONAL CONFUSION/FORGETFULNESS, FORGETS SHE IS IN THE HOSPITAL AT TIMES, FOR INSTANCE, ASKING "WHEN CAN I GO BACK TO MY ROOM?" EASILY REDIRECTABLE. PT QUINN D/C'D THIS SHIFT. INSTRUCTED PT TO CALL FOR ASSISTANCE WHEN SHE NEEDS TO VOID, PT VERBALIZED UNDERSTANDING. VSS THIS SHIFT. WILL CONTINUE TO OBSERVE FOR CHANGES.
[2021-10-25 07:11] LABS: HIV ANTIBODY Non Reactive (Non Reactive)
[2021-10-25 07:13] VITALS: BP 150/63
--- NOTE | 2021-10-25 13:35 | NUR ---
WM reviewed chart and spoke with nursing and attending physician. Pt remains in Enhanced Isolation due to COVID. Pt id afebrile and on room air. Pt is on Remdesivir. 5N consult ordered on 10/23. Per nursing, pt is more confused today. WM has placed several calls to pt's room to disucss discharge plan. Recommendation made for pt to have HH services. WM is following to assist as needed with discharge planning.
[2021-10-25 15:34] VITALS: BP 126/77
[2021-10-25 19:00] VITALS: BP 163/81
--- NOTE | 2021-10-25 19:33 | NUR ---
RN ASSUMED PT'S CARE AT 0700-1900PM, PT IS A&OX2 ( PERSON AND PLACE), PT IS CONFUSED AT TIME, PT IS ON ROOM AIR , PT'S VS IS STABLE AT DAY SHIFT, PT IS CONTINUING IV FLUID.
--- NOTE | 2021-10-26 04:37 | NUR ---
PT IS SLOWLY PROGRESSING TOWARD GOALS. A&OX4 WITH OCCASIONAL CONFUSION/FORGETFULNESS NOTED. PT UP MULTIPLE TIMES TO BSC THROUGHOUT THE SHIFT WITH SBA. PT IS STEADY ON HER FEET DURING TRANSFERS. PT STATES SHE IS FEELING BETTER BUT FEELS BAD BECAUSE SHE "SNAPPED AT ONE OF THE NURSES." RN PROVIDED REASSURANCE AND THERAPEUTIC LISTENING. PT'S BROTHER CALLED PT IN HER ROOM X2 BUT PT DID NOT ANSWER. RN PRESENT WHILE PHONE RINGING, PT STATED SHE DID NOT WANT TO TALK TO ANYONE BECAUSE "EVERYONE JUST WANTS TO GIVE ME ADVICE AND TELL ME WHAT TO DO." PT'S BROTHER CALLED NURSING STATION AND RN PROVIDED UPDATE ON PT CONDITION; BROTHER APPRECIATIVE FOR UPDATE. WILL CONTINUE TO OBSERVE FOR CHANGES
[2021-10-26 04:57] VITALS: BP 150/82
[2021-10-26 07:14] VITALS: BP 147/68
[2021-10-26 07:49] LABS: HEMATOCRIT 35.5 % (37.0-47.0); HEMOGLOBIN 11.8 gm/dL (12.0-15.0); MCH 30.2 pg (26.0-34.0); MCHC 33.3 g/dL (28.0-37.0); MCV 90.6 fL (80.0-100.0); RBC 3.91 mil/uL (4.20-5.00); RDW 15.4 % (10.5-14.5); WBC 4.8 thou/uL (4.0-11.0)
[2021-10-26 08:25] LABS: ALBUMIN 2.9 g/dL (3.4-5.0); ANION GAP 8 mmol/L (7-16); BUN 12 mg/dL (7-18); CALCIUM 8.1 mg/dL (8.5-10.1); CHLORIDE 99 mmol/L (98-107); CO2 26 mmol/L (21-32); CREATININE 0.9 mg/dL (0.6-1.0); DIRECT BILIRUBIN < 0.1 mg/dL (<0.1-0.2); GLUCOSE 90 mg/dL (74-106); PHOSPHORUS 2.3 mg/dL (2.5-4.9); POTASSIUM 3.5 mmol/L (3.5-5.1); SGOT 55 U/L (15-37); SGPT 46 U/L (30-65); SODIUM 133 mmol/L (136-145); TOTAL BILIRUBIN 0.3 mg/dL (0.2-1.0); TOTAL PROTEIN 6.2 g/dL (6.4-8.2)
--- NOTE | 2021-10-26 13:17 | NUR ---
SW reviewed chart and spoke with nursing and attending physician. Pt remains in Enhanced Isolation due to COVID. Pt is afebrile and on room air. Pt to complete course of Remdesivir today. 5N consult ordered. Awaiting input from 5N at this time. SW placed call to pt's room. No answer. Per attending physician, pt is agreeable with staying for rehab. Pt would remain on 3W until out of Enhanced Isolation. SW asked nursing to place phone near pt or to call SW when in pt's room, to discuss discharge plan. SW is following to assist as needed with discharge planning.
[2021-10-26 14:33] VITALS: BP 127/69
--- NOTE | 2021-10-26 18:09 | NUR ---
assumed care of pt at 0700. pt alert and oriented x3 this morning but increasingly confused throughout the day, and feeling depressed about it. up w/ sba to bsc. breathing comfortably on room air. ivf infusing per order. rehab efforts ongoing. wcm.
[2021-10-26 19:48] VITALS: BP 153/76
--- NOTE | 2021-10-27 03:39 | NUR ---
PT IS SLOWLY PROGRESSING TOWARD GOALS. PLAN IS TO BEGIN REHAB. A&OX3-4 WITH SOME OCCASIONAL CONFUSION/FORGETFULNESS NOTED. PT IS NOTABLY WITHDRAWN FROM HER PERSONAL CONTACTS, DOES NOT WISH TO SPEAK TO FAMILY OR FRIENDS, HAS A POOR APPETITE, AND WANTS TO KNOW WHAT SHE NEEDS TO DO TO "GET BACK UNDER THE LEADERSHIP OF YARI." RN PROVIDED REASSURANCE AND THERAPEUTIC LISTENING. VSS, ON ROOM AIR. UP WITH SBA TO BSC. WILL CONTINUE TO OBSERVE FOR CHANGES
[2021-10-27 04:05] VITALS: BP 150/70
[2021-10-27 07:18] VITALS: BP 159/80
--- NOTE | 2021-10-27 11:33 | NUR ---
DISCHARGE NOTE: WM reviewed chart and spoke with nursing and attending physician. Pt remains in Enhanced Isolation due to COVID. Pt is afebrile and on room air. WM discussed case with 5N aboriginal liaison officer, who states they are able to admit pt to rehab today. WM placed call to pt's room. Introduced role of SW to pt. Pt appears to be alert/orientated x 4. Pt reports she lives at home with roommates. Prior to admission, she was independent with ADLs and does not use any DME. Pt states there are stairs down to the laundry room. Pt is unsure how many, but states she is normally able to navigate the stairs independently. No hx of services or post-acute placement. Pt states she goes to the [facility] in [place] for primary care. WM explained pt's acceptance to 5N and that pt will remain on 3W until out of Enhanced Isolation. Pt verbalized understanding and is agreeable with discharge plan. SW offered to notify family/friends. Pt declined offer and states that she is keeping everyone updated. WM updated pt's nurse. Rehab CM to follow and assist as needed with discharge planning.
[2021-10-27] MEDS ORDERED: SYNTHROID100 MC1 PO (13:52)
[2021-10-27] MEDS ORDERED: ENOXAPARIN30 MG/0.3 SUBQ (13:52)
[2021-10-27 15:01] VITALS: BP 128/78
== END 2021-10-27 15:03 | DRG 177 ==
LOC: ER 15:41 → EROBS 19:22 → 3W 19:22
PROVIDERS: Hospitalist; Internal Medicine; Nurse Practitioner Family; Specialist; ADMIT Hospitalist; ATTEND Hospitalist
PROC: XW033E5 Introduction of Remdesivir Anti-infective into Peripheral Vein, Percutaneous Approach, New Technology Group 5 (ICD-10-PCS; principal; 2021-10-22)
DX: U07.1 COVID-19 (principal); G92.8 Other toxic encephalopathy; E87.1 Hypo-osmolality and hyponatremia; N17.9 Acute kidney failure, unspecified; E87.2 Acidosis; E46 Unspecified protein-calorie malnutrition; Z68.1 Body mass index [BMI] 19.9 or less, adult; K52.9 Noninfective gastroenteritis and colitis, unspecified; E03.9 Hypothyroidism, unspecified; K59.00 Constipation, unspecified; D64.9 Anemia, unspecified; R74.01 Elevation of levels of liver transaminase levels; R53.81 Other malaise; R26.89 Other abnormalities of gait and mobility; Z80.0 Family history of malignant neoplasm of digestive organs; Z82.49 Family history of ischemic heart disease and other diseases of the circulatory system
CPT/HCPCS: 10879

== ENCOUNTER 2021-10-27 12:58 | Inpatient (IN) | payer OTHER ==
[~2021-10-27] VITALS: Ht 147.3 cm; Wt 40.4 kg
[2021-10-27] MEDS ORDERED: ENOXAPARIN30 MG/0.3 SUBQ (13:52)
[2021-10-27] MEDS ORDERED: SYNTHROID100 MC1 PO (13:52)
--- NOTE | 2021-10-27 16:53 | NUR ---
BED LOW AND LOCKED. SIDE RAILS UPX3, CALL LIGHT IN REACH. WILL CONTINUE TO ASSESS.
[2021-10-27 21:28] VITALS: BP 143/70
[2021-10-28 03:23] VITALS: BP 146/77
--- NOTE | 2021-10-28 03:34 | NUR ---
PROGRESS PT A/O X3 BUT SLOW TO RESPOND AND APPEARS CONFUSED AT TIMES. PT REHAB STATUS NOW. VSS. UP WITH ASSIST TO BSC. LUNGS DIMINISHED BUT PT ON ROOM AIR. SKIN C/D/I. UP IN CHAIR FOR ALL MEALS AND REMAINED IN CHAIR AT START OF SHIFT. HAS A APERTURE MASK ETCHER CONSULT FOR POOR INTAKE. HYPONATREMIA RESOLVING, CONTINUE POC.
[2021-10-28 03:54] LABS: HEMATOCRIT 32.8 % (37.0-47.0); HEMOGLOBIN 11.4 gm/dL (12.0-15.0); MCH 31.4 pg (26.0-34.0); MCHC 34.8 g/dL (28.0-37.0); MCV 90.3 fL (80.0-100.0); RBC 3.63 mil/uL (4.20-5.00); RDW 15.5 % (10.5-14.5); WBC 4.6 thou/uL (4.0-11.0)
[2021-10-28 04:01] LABS: CALCIUM 8.6 mg/dL (8.5-10.1); CREATININE 0.9 mg/dL (0.6-1.0); POTASSIUM 3.6 mmol/L (3.5-5.1)
[2021-10-28 04:38] LABS: FOLIC ACID 17.3 ng/mL (8.6-58.9)
[2021-10-28 07:17] VITALS: BP 159/79
--- NOTE | 2021-10-28 10:03 | NUR ---
INITIAL REHAB ASSESSMENT: Received consult. Pt was admitted to rehab yesterday. Pt to remain on 3W as rehab status until out of Enhanced Isolation. Pt remains in Enhanced Isolation due to COVID. Pt is afebrile and on room air. Pt lives at home with roommates. Pt is affiliated with the [facility]. Prior to admission, she was independent with ADLs and does not use any DME. There are stairs down to the laundry room. Pt is unsure how many, but states she is normally able to navigate the stairs independently. No hx of services or post-acute placement. Pt goes to the [facility] in [place] for primary care. Team conference to be held this afternoon. Rehab CM to follow and assist as needed with discharge planning.
--- NOTE | 2021-10-28 11:19 | NUR ---
Add MVI/min daily
--- NOTE | 2021-10-28 13:12 | NUR ---
CARE ASSUMED THIS AM, PT ALKERT AND ORIENTED X2. PLEASANTLY CONFUSED. UP IN THE CHAIR, WORKED WITH PT/OT. ON ROOM AIR. DOCUSTATE AND SENNA GIVEN FOR CONSTIPATION. FALL AND ENHANCED PRECAUTION IN PLACE. WILL CONTINUE TO MONITOR.
--- NOTE | 2021-10-28 13:40 | NUR ---
Team meeting, needs increased time for all adls. Enhanced isolation for covid. BPCI. speech consult. Re team.
[2021-10-28 15:12] VITALS: BP 121/68
[2021-10-28 19:25] VITALS: BP 152/70
[2021-10-29 04:49] VITALS: BP 139/71
--- NOTE | 2021-10-29 05:55 | NUR ---
PROGRESS PT ALERT BECOMING MORE RESPONSIVE BUT STILL NEEDS TIME TO THINK BEFORE SHE RESPONDS. USING CALL LIGHT APPROPRIATELY TO USE BSC. PT IS UP WITH CONTACT GUARD ASSIST FOR SAFETY TO BSC ABLE TO PULL DOWN AND PULL UP BRIEFS AND PERFORM PERICARE AFTER TOLIETING INDEPENDENTLY. CONTINUE POC.
[2021-10-29 07:20] VITALS: BP 146/78
--- NOTE | 2021-10-29 15:26 | NUR ---
Ulises tired to talk with vandana via phone call, related to covid isolation. No answer. Ulises spoke with her friend kalen, no concerns voiced and they will cont to pray for vandana. Ulises passed on message to unit staff to give message to vandana. Re team.
[2021-10-29 15:32] LABS: URINE BILIRUBIN NEGATIVE (Negative); URINE BLOOD NEGATIVE (Negative); URINE CLARITY CLEAR; URINE COLOR YELLOW; URINE GLUCOSE-RANDOM* NEGATIVE (Negative); URINE KETONES NEGATIVE (Negative); URINE LEUKOCYTES-REFLEX NEGATIVE (Negative); URINE NITRITE-REFLEX NEGATIVE (Negative); URINE PROTEIN (DIPSTICK) NEGATIVE (Negative); URINE UROBILINOGEN 0.2 E.U./dl (0.2-1.0)
[2021-10-29 15:58] VITALS: BP 146/72
--- NOTE | 2021-10-29 17:57 | NUR ---
PT QUIET LITTLE TO NO VERBAL RESPONSE TO STAFF TODAY, ALERT CONFUSED, PT WOKEN UP BY STAFF TO USE BSC. FAMILY CALLED CONCERNED PT IS NOT ANSWERING HER CELL PHONE OR ROOM PHONE, THEY ARE CONCERNED SHE IS FEELING DEPRESSED. CLEAN CATCH URINE SENT TO LAB.
[2021-10-29 19:21] VITALS: BP 157/80
--- NOTE | 2021-10-29 22:49 | NUR ---
PT ALERT AND ORIENTED X2 PERSON AND PLACE. CONFUSED. FOLLOWS SOME REQUESTS. PT IS FORGETFUL AND SPEECH IS SLOW TO RESPOND. NO C/O PAIN. VSS. T 98.8. UNLABORED ON RA. INC OF URINE. NO S/S DISTRESS.
--- NOTE | 2021-10-30 04:52 | NUR ---
PT PROGRESSING TOWARDS D/C GOALS. VSS. NO C/O PAIN. NO S/S DISTRESS TONIGHT.
[2021-10-30 07:14] VITALS: BP 147/80
[2021-10-30 09:00] VITALS: BP 135/76
[2021-10-30 15:29] VITALS: BP 117/60
--- NOTE | 2021-10-30 17:04 | NUR ---
RN ASSUMED PT'S CARE AT 0700AM, PT IS A&OX2 ( PERSON AND PLACE), PT IS CONFUSED AT TIME, PT IS ON ROOM AIR, PT 'S VS AND O2SAT ARE STABLE, PT DENIES SOB AND PAIN BY THIS TIME, PT GETS UP TO BSC WITH ASSIST, PT IS CONTINUING COVID ISOLATION.
[2021-10-30 19:17] VITALS: BP 135/76
--- NOTE | 2021-10-30 22:08 | NUR ---
PT PROGRESSING TOWARDS D/C GOALS. VSS AFEBRILE. UNLABORED ON RA. NO C/O PAIN OR SOA. PT IS STILL CONFUSED. SHE COULD NOT UNDERSTAND WHY SHE WAS HERE AND KEPT SAYING "IM LOSING MY MIND". FALL PRECAUTIONS IN PLACE. BED ALARM IS ON.
[2021-10-31 03:35] VITALS: BP 147/78
--- NOTE | 2021-10-31 05:43 | NUR ---
PT PROGRESSING SLOWLY TOWARDS D/C GOALS. VSS. NO S/S DISTRESS. ENCOURAGING PO FLUIDS. PT WILL DRINK IF FLUIDS OFFERED FREQUENTLY. INC IN BRIEFS SEVERAL TIMES AND USES BSC WITH ASSISTANCE.
[2021-10-31 07:21] VITALS: BP 139/72
[2021-10-31 09:20] VITALS: BP 139/72
--- NOTE | 2021-10-31 17:42 | NUR ---
RN ASSUMED PT'S CARE AT 0700AM, PT IS A&OX2 ( PERSON AND PLACE), PT IS FORGETFUL AND SHE IS COMFUSED AT TIME, PT IS REHAB STATUS, PT IS ON ROOM AIR AND PT'S VS ARE STABLE AT DAY SHIFT, PT GETS UP TO BSC WITH 1 STAFF ASSIST, PT DENIES PAIN AND SOB AT DAY SHIFT, PT IS CONTINUING COVID ISOLATION.
[2021-10-31 19:14] VITALS: BP 155/79
--- NOTE | 2021-11-01 04:36 | NUR ---
PT SLOWLY PROGRESSING TOWARD GOALS. ABLE TO ANSWER ALL ORIENTATION QUESTIONS (A&OX4) BUT IS SLOW TO RESPOND, FORGETFUL, AND APPEARS CONFUSED AT TIMES. FIXATED ON "HOW TO GET UNDER THE LEADERSHIP OF YARI." VSS THIS SHIFT. WILL CONTINUE TO OBSERVE FOR CHANGES
[2021-11-01 07:26] VITALS: BP 140/77
--- NOTE | 2021-11-01 18:29 | NUR ---
RN ASSUMED PT'S CARE AT 0700AM, PT IS A&OX2 ( PERSON AND PLACE), PT CAN FOLLOW COMMANDS, BUT PT IS FORGETFUL AND SHE IS CONFUSED AT TIME, PT IS ON ROOM AIR AND PT'S VS ARE STABLE AT DAY SHIFT, PT HAS WORKED WITH PT /OT TODAY, PT GETS UP WITH 1 STAFF ASSIST.
[2021-11-01 18:55] VITALS: BP 130/68
[2021-11-02 04:28] LABS: ABSOLUTE NEUTROPHILS 3.2 thou/uL (1.4-8.2); BASOPHILS 0.8 % (0.0-2.0); EOSINOPHILS 0.5 % (0.0-3.0); HEMOGLOBIN 10.6 gm/dL (12.0-15.0); LYMPHOCYTES 32.9 % (24.0-44.0); MCH 30.6 pg (26.0-34.0); MCHC 33.1 g/dL (28.0-37.0); MCV 92.4 fL (80.0-100.0); MONOCYTES 7.5 % (1.0-8.0); PLATELET COUNT 200 thou/uL (150-400); POLYS 58.3 % (36.0-66.0); RBC 3.47 mil/uL (4.20-5.00); RDW 15.5 % (10.5-14.5); WBC 5.5 thou/uL (4.0-11.0)
--- NOTE | 2021-11-02 04:31 | NUR ---
PT IS SLOWLY PROGRESSING TOWARD GOALS. AT BEGINNING OF SHIFT, PT WITH FLAT AFFECT, WITHDRAWN, DIFFICULTY FORMULATING THOUGHTS, THOUGH ABLE TO ANSWER ORIENTATION QUESTIONS X4. RN ENCOURAGED PT TO REACH OUT TO FRIENDS AND FAMILY, WHO HAVE TRIED TO REACH HER. RN ASSISTED PT WITH CHARGING HER CELL PHONE, AND PT CALLED HER BROTHER (AND [id number]). AFTER HER CONVERSATION, HER MENTAL STATUS SEEMED TO IMPROVE SOME, SHE WAS FORMULATING RESPONSES MORE QUICKLY AND SPEAKING WITH PURPOSE. WILL CONTINUE TO ENCOURAGE PT TO CONNECT WITH FRIENDS/FAMILY. VSS, ON ROOM AIR WITH NO SIGNS OF DISTRESS. WILL CONTINUE TO OBSERVE FOR CHANGES.
[2021-11-02 04:37] LABS: CALCIUM 8.7 mg/dL (8.5-10.1); MAGNESIUM 2.4 mg/dL (1.8-2.4); POTASSIUM 3.7 mmol/L (3.5-5.1)
[2021-11-02 09:13] VITALS: BP 123/72
[2021-11-02 15:22] VITALS: BP 111/66
--- NOTE | 2021-11-02 18:32 | NUR ---
RN ASSUMED PT'S CARE AT 0700AM, PT IS A&OX3 ( PERSON, TIME AND PLACE), PT IS ON ROOM AIR , PT'S O2SAT AND VS ARE STABLE, PT IS CONTINUING COVID ISOLATION , PT HAS WORKED WITH PT/OT, PT GETS TO TO CHAIR WITH ASSIST, PT DENIES PAIN AND SOB AT DAY SHIFT.
[2021-11-02 19:42] VITALS: BP 125/54
--- NOTE | 2021-11-03 05:01 | NUR ---
PT A&OX3 WITH OCCASIONAL CONFUSION NOTED. AT TIMES SHE SEEMS TO FORGET THAT SHE IS HOSPITALIZED AND CANNOT COME AND GO AT WILL. SHE STATED SHE IS "READY TO GET OUT OF HERE" SEVERAL TIMES TO ME THROUGHOUT THE SHIFT. OVERAL MENTAL STATUS AND OUTLOOK SEEM IMPROVED FROM PREVIOUS NIGHTS; SHE IS MUCH QUICKER TO FORMULATE REPLIES AND DOES NOT SEEM TO BE SEARCHING FOR WORDS TO THE EXTENT SHE PREVIOUSLY HAD BEEN. WILL CONTINUE TO MONITOR FOR CHANGES
[2021-11-03 07:05] VITALS: BP 117/62
--- NOTE | 2021-11-03 15:30 | NUR ---
PT A/O X 2-4, PT IN AND OUT OF CONFUSION. PT ALERT TO NAME AND PLACE, OCCASIONALLY DOES NOT KNOW DATE OR SEASON. PT TEARFUL X 2 TODAY, COMPLAINING THAT SHE WANTS TO "GET BACK TO DOING THE THINGS SHE DID BEFORE SHE CAME INTO THE HOSPITAL". PT STAND BY ASSIST. SKIN INTACT. NO COMPLAINTS OF PAIN. ON RA. GAVE REPORT TO 5N NURSE, JUST SENT PT UP TO 5N APPROX 1530.
--- NOTE | 2021-11-03 15:51 | NUR ---
PT ARRIVED TO UNIT APPROX 1530. A&OX4 AT THIS TIME. PER REPORT PT CAN BE FORGETFUL AND A&OX2. PT SEEMS A LITTLE OVERWHELMED WITH MOVING TO A NEW ROOM. VS CHARTED. DENIES PAIN. WILL CONTINUE TO MONITOR.
[2021-11-03 17:00] VITALS: BP 127/74
[2021-11-03 19:10] VITALS: BP 139/66
--- NOTE | 2021-11-04 04:38 | NUR ---
ASSUMED CARE AT 1915 OF 11/03. PATIENT IS A&OX2, CONFUSED AND TEARFUL AT TIMES. PATIENT REQUIRES REMINDERS AND CUES TO PERFORM TASKS. VERY SLOW TO RESPOND. STAND BY ASSIST WITH TRANSFERS AND AMBULATION USING GB. TOLERATED ORAL MEDS WHOLE WITH THIN LIQUIDS. NO REPORTS OF PAIN OR SHORTNESS OF BREATH. FALL PRECAUTIONS IN PLACE, CALL LIGHT WITHIN REACH. WILL CONTINE TO MONITOR.
[2021-11-04 09:30] VITALS: BP 132/60
[2021-11-04 09:46] VITALS: BP 132/60
--- NOTE | 2021-11-04 12:21 | NUR ---
I have reviewed the documentation by BENITA WHITTAKER from 11/04/21 TO 11/04/21 and I concur with it. LIZZETTE SRIVASTAVA
--- NOTE | 2021-11-04 13:26 | NUR ---
Team meeting, recommendation: moderate cognition, severe memory deficits. Poor insight . needs assist with pills and bills. dc 11/09/21 with [facility] ( pt, ot, st, nursing). call dr valenzuela to revisit. BPCI. Will need 08/05 supervision. Incont of b and b. Home with 08/05 vs snf. dc 11/11/21
--- NOTE | 2021-11-04 14:54 | NUR ---
JUAQUIN CARE OF PT AT 0700. PT RESTING QUIETLY IN BED AT THIS TIME. WENT BACK INAPPROX 0715 AND ASSESSED PT AN ASKED IF SHE NEEDED TO USE THE RESTROOM PT STATED NO. P THEN CALLED OUT APPROX 5 MINUTES LATER AND STATED, "HOW DO YOU EXPECT A PERSON TO SLEEP ALL NIGHT AND NOT USE THE BATHROOM." PT APPEARED TO HAVE NO RECOLLECTION OF THIS NURSE BEING IN PRIOR TO SEE HER. PT CAN ANSWER ORIENTATION QUESTIONS APPROPRIATELY BUT THEN ASKS QUESTIONS LIKE WHAT DO I DO NOW AFTER USING THE RESTROOM BUT NOT HAVING CLEANED SELF YET. PT APPETOTE POOR. PT WILLINGLY WORKS WITH THERAPIES. STEADY GAIT NOTED WITH SBA. WILL CONTINUE TO MONITOR.
--- NOTE | 2021-11-04 16:35 | NUR ---
S/W DR. CASTRO SHE WILL REVISIT PT THIS EVENONG OR MORE THAN LIKELY TOMORROW.
--- NOTE | 2021-11-04 16:50 | NUR ---
[facility] - [facility] [phone]
[2021-11-04 20:28] VITALS: BP 132/63
--- NOTE | 2021-11-05 01:31 | NUR ---
ASSUMED CARE AT 1915 OF 11/04. PATIENT IS A&OX2. FORGETFUL AND CONFUSED, REORIENTED TO TIME AND SITUATION. PATIENT REPEATEDLY ASKS WHAT SHE IS SUPPOSED TO DO NEXT. CUEING PROVIDED DURING TOILETING. STAND BY ASSIST W/ TRANSFERS AND AMBULATION TO BATHROOM, USING GB. PATIENT HAS BEEN CALLING APPROPRIATELY THIS SHIFT TO USE THE BATHROOM. DENIES PAIN OR SHORTNESS OF BREATH. FALL PRECAUTIONS IN PLACE, CALL LIGHT WITHIN REACH. WILL CONTINUE TO MONITOR.
[2021-11-05 07:29] VITALS: BP 146/67
--- NOTE | 2021-11-05 16:14 | NUR ---
ASSUMED CARE OF PATIENT AT 0700. COVID TRANSFER ON 10-27-21. PATIENT ALERT TO SELF AND PLACE, BUT CONFUSED AT TIMES TO WHAT SHE IS SUPPOSE TO BE DOING. NEEDS CUEING. NO C/O PAIN. UP IN CHAIR FOR MEALS. NOTICE OF SON BEING THE DPOA FORWARDED TO MDs SEEN. PATIENT ABLE TO TURN SELF IN BED. ABLE TO TAKE PILLS WHOLE WITH THIN LIQUIDS. INCONTIENT AT TIMES BUT HAS BEEN ABLE TO ASK TO GO TO THE BR TWICE THIS SHIFT. PATIENT PROGRESSING TOWARD POC.
--- NOTE | 2021-11-06 02:37 | NUR ---
assumed care approx 1900 evening 11/05. pt sitting up in recliner at change of shift. pt awake and confused needing queing several times this night. pt up to bsc to void large amts urine and also incontinent of urine. pt took hs med with water tolerating well. pt appears to be sleeping soundly in between bsc voids. bed alarm on and call light in reach. will continue to monitor.
[2021-11-06 08:00] VITALS: BP 126/61
--- NOTE | 2021-11-06 15:47 | NUR ---
ASSUMED CARE OF PT AT 0700. PT IS A&O TO SELF. PT IS INCONTIENT OF BLADDER BUT CONTINENT OF BOWEL. PT IS NOT IMPULSIVE SHE CALL OUT TO HAVE A BOWEL MOVEMENT AND WAITS FOR STAFF TO COME TO HER BEFORE GETTING UP OUT OF CHAIR TO GO TO BATHROOM.
[2021-11-06 19:05] VITALS: BP 133/65
--- NOTE | 2021-11-07 03:27 | NUR ---
assumed care approx 1900 evening 11/06. pt assisted into bed from recliner and pt took hs med with water tolerating well. pt went to bathroom before hs with 1 assist to bathroom. pt pleasantly confused. bed alarm on and call light in reach. will continue to monitor.
[2021-11-07 05:51] LABS: ABSOLUTE NEUTROPHILS 2.4 thou/uL (1.4-8.2); BASOPHILS 2.1 % (0.0-2.0); EOSINOPHILS 0.5 % (0.0-3.0); HEMATOCRIT 30.3 % (37.0-47.0); HEMOGLOBIN 10.1 gm/dL (12.0-15.0); LYMPHOCYTES 35.1 % (24.0-44.0); MCH 31.4 pg (26.0-34.0); MCHC 33.3 g/dL (28.0-37.0); MCV 94.3 fL (80.0-100.0); MONOCYTES 11.1 % (1.0-8.0); PLATELET COUNT 191 thou/uL (150-400); POLYS 51.2 % (36.0-66.0); RBC 3.21 mil/uL (4.20-5.00); RDW 16.3 % (10.5-14.5); WBC 4.6 thou/uL (4.0-11.0)
[2021-11-07 06:16] LABS: CALCIUM 8.6 mg/dL (8.5-10.1); CREATININE 0.9 mg/dL (0.6-1.0); MAGNESIUM 2.3 mg/dL (1.8-2.4); PHOSPHORUS 3.2 mg/dL (2.6-4.7); POTASSIUM 3.7 mmol/L (3.5-5.1)
[2021-11-07 07:20] VITALS: BP 126/58
--- NOTE | 2021-11-07 17:44 | NUR ---
ASSUMED CARE OF PATIENT AT 0700. PATIENT IS AO TO SELF WITH CONFUSION AND FORGETFULNESS YET PLEASANT. PATIENT CONTINENT WITH URINE AND USED BEDSIDE COMMODE. PATIENT TAKES MEDS WITH WATER. PATIENT HAS NO IV AND USES RA. PATIENT EXPRESSED NO PAIN. PATIENT HAS DICLOFENAC SODIUM GEL FOR PAINT OF HIP AND BACK. PATIENT VITAL SIGNS GOOD.
[2021-11-07 19:35] VITALS: BP 146/77
--- NOTE | 2021-11-08 02:42 | NUR ---
ASSUMED CARE AT 1935, PATIENT IS A&O TO SELF. CONFUSED AND FORGETFUL, BUT STILL ABLE TO MAKE NEEDS KNOWN AND USES CALL LIGHT APPROPRIATELY. STAND BY ASSIST W/ TRANSFER AND AMBULATION USING GB. DENIES PAIN OR SHORTNESS OF BREATH. REQUIRES ALOT OF CUEING AND DIRECTIONS WHEN PERFORMING TASKS. FALL PRECAUTIONS IN PLACE, CALL LIGHT WITHIN REACH. WILL CONTINUE TO MONITOR.
[2021-11-08 08:00] VITALS: BP 116/63
--- NOTE | 2021-11-08 15:05 | NUR ---
THIS NURSE ASSUMED CARE OF THIS PATIENT AT 0700 THIS SHIFT. PATIENT ANXIETY LEVEL INCREASED THIS MORNING. PATIENT CUPPED BOTH EARS SAYING "YARI GREENBERG." CONTACTED GOOD FRIEND TO HAVE PATIENT SPEAK WITH HER TO CALM HER NERVES. THIS NURSE WILL COLLECT URINE FOR URINE ANALYSIS.
[2021-11-08 18:54] VITALS: BP 116/63
[2021-11-08 20:53] LABS: URINE BILIRUBIN NEGATIVE (Negative); URINE BLOOD NEGATIVE (Negative); URINE CLARITY CLEAR; URINE COLOR YELLOW; URINE GLUCOSE-RANDOM* NEGATIVE (Negative); URINE KETONES NEGATIVE (Negative); URINE LEUKOCYTES-REFLEX TRACE (Negative); URINE NITRITE-REFLEX NEGATIVE (Negative); URINE PROTEIN (DIPSTICK) NEGATIVE (Negative); URINE UROBILINOGEN 0.2 E.U./dl (0.2-1.0)
--- NOTE | 2021-11-09 01:57 | NUR ---
ASSUMED CARE AT 1915 OF 11/08. PATIENT IS A&O TO SELF, REORIENTED TO PLACE, TIME AND SITUATION. INTERMITTENTLY CONFUSED, AND FORGETFUL. REQUIRES CONSISTENT CUEING TO PERFORM TASKS. PATIENT APPEARED TO HAVE AND ANXIOUS EPISODE AT THE START OF SHIFT BECAUSE SHE HAD TO WAIT A LITTLE WHILE BEFORE BEING ABLE TO TRANSFER FROM THE CHAIR TO THE BED. PROVIDED WITH EMOTIONAL SUPPORT AND THERAPUTIC COMMUNICATION IMPLEMENTED. PATIENT WAS ABLE TO CALM DOWN. AROUND 0200 PATIENT AWOKE AND REQUESTED TO TAKE A WALK BECAUSE SHE COULD NOT SLEEP. CONTAC GUARD ASSIST WITH GB, WAS PROVIDED STAFF TOOK PATIENT ON A WALK AROUND THE UNIT. FACE MASK REMAINED ON PATIENT WHILE OUT OF ROOM. PATIENT HAS AGREED TO GO TO BED AND WILL TRY FALLING ASLEEP AGAIN. FALL PRECAUTIONS IN PLACE, CALL LIGHT WITHIN REACH. WILL CONTINUE TO MONITOR.
[2021-11-09 08:00] VITALS: BP 133/69
--- NOTE | 2021-11-09 11:36 | NUR ---
cm called her friend kyle, returning her phone call and voice message stating she will not be home from [place] till monday, spouse family member not doing well. Dc was set for . unable to leave message as voice message box not set up. Will cont following as needed.
--- NOTE | 2021-11-09 19:35 | NUR ---
THIS NURSE ASSUMED CARE OF THIS PATIENT AT 0700. PATIENT A&O X 2 CONFUSION AND FORGETFULNESS. PATIENT AMBULATES WELL TO TOILET AND WALKED WITH THERAPIST IN HALLWAY THIS AFTERNOON. PATIENT ENJOYS LISTENING TO [employer] MUSIC ON CELL PHONE. PATIENT D/C 11/11 TO [facility] F[facility]ILITY OR TO HOME WITH SUPERVISION. PATIENT DID NOT TAKE LACTULOSE THIS MORNING. PATIENT APPREHENSIVE WITH SOME MEDICATIONS.
[2021-11-09 21:41] VITALS: BP 137/75
--- NOTE | 2021-11-10 00:11 | NUR ---
PT ALERT AND ORIENTED X 1, CONFUSED. AMB TO BR WITH ASSIST X 1 WITH GAIT BELT. PT REFUSED HS MEDS AFTER SEVERAL ATTEMPTS TO GIVE THEM TO HER. PT DENIES PAIN OR DISCOMFORT. BED ALARM ON FOR SAFETY. PT APPEARS TO BE SLEEPING ON HOURLY ROUNDS.
[2021-11-10 07:26] VITALS: BP 153/83
--- NOTE | 2021-11-10 15:44 | NUR ---
Cm attempted to call pt's friend Gayla to verify she will be back in town monday for to take the pt home with her; however no answer and vm is not setup. Unit RN rec'd call from zara Soares wanting to know what SNF the pt was going to. Feeder Switchboard Operator attempted to call him as well at [phone] with no answer and no vm.
[2021-11-10 17:36] VITALS: BP 153/83
[2021-11-10 21:20] VITALS: BP 150/74
--- NOTE | 2021-11-11 03:18 | NUR ---
ASSUMED CARE AT 1915 OF 11/10. PATIENT IS A&OX2, REORIENTED TO SITUATION AND TIME. PATIENT HAD VISITORS FROM HER LUTHERAN AT START OF SHIFT WHO CAME TO PRAY AND SING GNOSTICIST SONGS WITH HER. WHEN THIS NURSE CAME IN TO HELP PATIENT TO BATHROOM, SHE STATED SHE IS WAITING FOR HER FRIENDS TO COME AND VISIT WITH HER. PATIENT IS REMINDED THAT VISITING HOURS ARE DONE AND HER FRIENDS WERE ALREADY BY TO VISIT WITH HER. SHE REPORTS HAVING NO RECOLECTION OF PEOPLE VISITING WITH HER IN THE EARLY EVENING AT ALL. PATIENT WAS ABLE TO PERFOM ADLS AT WITH SUPERVISION AND CUEING. AROUND 0200, PATIENT WAS STANDBY ASSIST WITH AMBULATION TO BATHROOM, USING GB. SHE THEN REFUSED TO GET BACK IN BED, AND SAID IT IS TORTURE TO BE IN BED FOR SO LONG. PATIENT IS REORIENTED TO TIME, EMOTIONAL SUPPORT PROVIDED. PATIENT WANTED TO GET IN THE CHAIR AND HAS BEEN DOSING ON AND OFF IN CHAIR. FALL PRECAUTIONS IN PLACE, FREQUENT OBSERVATION IMPLEMENTED. CALL LIGHT WITHIN REACH. WILL CONTINUE TO MONITOR.
[2021-11-11 07:10] VITALS: BP 149/71
--- NOTE | 2021-11-11 08:00 | NUR ---
[facility] is able to accept today for skilled rehab. BPCI. Transportation 1300 wheel chair van. [id number], completed, they will need it completed by MD online, they have to have the online code. Will dc today, report to be called. DAWOOD spoke with kyle, she still planing on bringing vandana to their home after she has some more therapy.
[2021-11-11] MEDS ORDERED: VITAMIN D325 MC2 PO (09:01)
--- NOTE | 2021-11-11 16:04 | NUR ---
PT TO DISCHARGE TODAY TO [facility]. REPORT CALLED TO FACILITY AT 12:20PM. TRANSPORT CAME AND PICKED UP PT AT 1:14PM.
--- NOTE | 2021-11-14 13:43 | HC ---
[facility] [place] [address] CONSULTATION Name: RICHARD KING Room #: 503-P [facility] IN M.R.#: [id number] Admission: 10/27/21 Attend Phys: Erwin Parekh MD Discharge: 11/11/21 Date of : 44 Report #: [id number] THIS REPORT FOR: cc: [facility] Benigno Marin PhD ~ DATE OF SERVICE: 11/06/2021 NEUROBEHAVIORAL STATUS EXAM ATTENDING PHYSICIAN: Erwin Parekh MD LUBRICATING SPECIALIST: Benigno Marin, PhD CLINICAL PRESENTATION: The patient is a 81-year-old female admitted to [facility] with shortness of air. She was found to have COVID-19 infection. Her medical problem list included colitis, confusion, constipation, COVID-19, encephalopathy, enteritis, hyponatremia, lactic acidosis, UTI and weakness. A complete description of her medical condition and history can be found in her medical record. Her assessment on admission to the rehabilitation unit included acute metabolic encephalopathy, gait instability with deconditioning, COVID-19, hyponatremia/anemia, colitis and a new diagnosis of hypothyroidism. Also noted vision impairment, cognitive impairment, functional mobility impairment and gait impairment. A complete description of her medical condition and history along with medications can be found in her medical record. Neuropsychological consultation was requested to provide assistance in the assessment of cognitive and emotional status and provide recommendations and services. The patient reports living in a correction setting. Medical records indicate that she was in a house with roommates from the [facility]. She is reported to have been independent with basic and instrumental activities of daily living. However, she has not driven due to failing vision. The patient is a college graduate with a degree in biology. 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 She has never . She has two foster children. TECHNIQUES UTILIZED: Clinical interview, review of medical records, staff consultation and behavioral observation, mini mental status exam 2 standard version and clock drawing. EXAMINATION FINDINGS: The patient was alert and cooperative with the assessment. However, she was very quiet and had a delayed response when questioned. Reduced processing speed is suggested along with diminished [facility] [address] [place] [address] CONSULTATION Name: RICHARD KING Room #: 503-P [facility] IN M.R.#: [id number] Admission: 10/27/21 Attend Phys: Erwin Parekh MD Discharge: 11/11/21 Date of : 44 Report #: [id number] auditory comprehension. Difficulty with word finding and memory were noted during the interview. The patient had difficulty in describing her level of independence prior to her admission. Decreased insight into cognitive and emotional status is suggested. She reports her appetite and sleep are normal. However, she looks malnourished. Difficulty with memory and word finding along with depression and anxiety are reported. Her performance was extremely low on the MMSE 2 brief version with a raw score of 12-16. She was 3/3 for initial registration, 3/5 for orientation to time, 4/[address] and 2/3 for immediate recall of 3 items after a brief time delay and distraction. Her performance on the MMSE 2 standard version was extremely low with a raw score of 20/30, T score of 20 and percentile rank of less than 1. She was 0/5 for serial sevens, found 2/2 for naming, 1/1 for repetition, 3/3 for auditory comprehension, 1/1 for being able to read and follow a single command and write a sentence. The patient was unable to accurately copy a simple geometric design. Very slow processing speed along with encouragement to maintain attention was noted during the assessment. The patient was unable to draw a clock and place the hands at a designated time. The concept of time and the ability to identify a specific time is impaired suggesting deficits in executive functioning. Visual spatial constructive deficits were also noted along the ability to generate a sentence suggesting executive dysfunction. 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 RECOMMENDATIONS: The patient may benefit from a followup neuropsych to clarify cognitive status upon stabilization of her medical condition. Her self-report of functioning prior to COVID was quite high in regard to independent with ADLs. However, current level of function suggests a severe impairment. Assistance will be necessary for management of medication, finances and nutrition. As indicated follow up neuropsych upon stabilization of her medical condition to clarify cognitive status approximately 2-3 months is recommended. Continued speech therapy will be of benefit to help with establishment of compensatory strategies to assist in overall adjustment. [address] [address] CONSULTATION Name: RICHARD KING Room #: 503-P [facility] IN M.R.#: [id number] Admission: 10/27/21 Attend Phys: Erwin Parekh MD Discharge: 11/11/21 Date of : 44 Report #: [id number] Thank you very much for allowing me to provide the consultation on this patient. <ELECTRONICALLY SIGNED> By: Benigno Marin, PhD 11/14/21 1343 [id number] Benigno Marin, PhD /nt
== END 2021-11-11 13:15 | DRG 947 ==
LOC: 3W 12:58
PROVIDERS: Internal Medicine; Nurse Practitioner; Nurse Practitioner Family; ADMIT Physical Medicine & Rehabilitation; ATTEND Physical Medicine & Rehabilitation
DX: R53.81 Other malaise (principal); G93.41 Metabolic encephalopathy; U07.1 COVID-19; E87.1 Hypo-osmolality and hyponatremia; E44.0 Moderate protein-calorie malnutrition; Z68.1 Body mass index [BMI] 19.9 or less, adult; K52.9 Noninfective gastroenteritis and colitis, unspecified; E03.9 Hypothyroidism, unspecified; R26.89 Other abnormalities of gait and mobility; D64.9 Anemia, unspecified; F01.50 Vascular dementia, unspecified severity, without behavioral disturbance, psychotic disturbance, mood disturbance, and anxiety; F43.23 Adjustment disorder with mixed anxiety and depressed mood; K59.09 Other constipation
CPT/HCPCS: 10112